=== PATIENT | male | born 1935 | race Caucasian/White ===

== ENCOUNTER 2020-09-21 10:06 | Emergency (ER) | payer MEDICARE ==
[~2020-09-21] VITALS: Ht 175.3 cm; Wt 75.0 kg
[2020-09-21 12:25] VITALS: BP 112/64
== END 2020-09-21 12:25 | disposition home or self-care (01) ==
LOC: ED 10:06
DX: S01.21XA Laceration without foreign body of nose, initial encounter (principal); S00.83XA Contusion of other part of head, initial encounter; R26.89 Other abnormalities of gait and mobility; E11.9 Type 2 diabetes mellitus without complications; I10 Essential (primary) hypertension; F17.200 Nicotine dependence, unspecified, uncomplicated; W01.0XXA Fall on same level from slipping, tripping and stumbling without subsequent striking against object, initial encounter; Z79.82 Long term (current) use of aspirin